=== PATIENT | male | born 1990 | race Caucasian/White ===

== ENCOUNTER 2017-08-22 02:26 | Emergency (ER) | payer SELFPAY ==
[~2017-08-22] VITALS: Ht 182.9 cm; Wt 81.6 kg
[2017-08-22 02:35] VITALS: BP 113/60
[2017-08-22] MEDS ORDERED: IBUPROFEN 400 MG TABLET PO ONE (04:00)
[2017-08-22] MEDS ORDERED: CEPHALEXIN MONOHYDRATE 500 MG CAPSULE PO ONE (04:00)
== END 2017-08-22 03:49 | disposition home or self-care (01) ==
LOC: ER 02:28
DX: L03.032 Cellulitis of left toe (principal)
CPT/HCPCS: A4606; Z7610

== ENCOUNTER → 2021-09-27 | Emergency (ER) | payer BC ==
[~2021-09-27] VITALS: Ht 180.3 cm; Wt 102.1 kg
[~2021-09-27] MED LIST: LIDOCAINE /MPF 1% VIAL 5 ML VIAL ONE; LIDOCAINE 1%-EPI 1:100,000 20 ML VIAL ONE; LIDOCAINE 1%-EPI 1:100,000 20 ML VIAL TP ONE; LIDOCAINE HCL/PF 1% 30 ML VIAL TP ONE; TDAP [DIPH/PERTUSSIS/TET] 0.5 ML VIAL IM ONE
[2021-09-27 09:01] VITALS: BP 126/80
--- NOTE | 2021-09-27 09:07 | NUR ---
DR CAGE AT BEDSIDE
--- NOTE | 2021-09-27 09:20 | NUR ---
TDAP GIVEN RIGHT DELTOID. LOT#[id number], EXP 07/12/2023
--- NOTE | 2021-09-27 09:34 | NUR ---
ORDER FOR XYLOCAINE W/ EPI NOTED FROM DR. CAGE. ORDER READ AND VERIFIED W/ .
--- NOTE | 2021-09-27 09:58 | NUR ---
Patient discharged to home in stable condition. Ambulatory w/ steady gait. Written and verbal after care instructions given for lac repair after care. Right fifth digit w/ dressing clean/dry/intact. Patient verbalizes understanding of instruction.
== END | disposition home or self-care (01) ==
LOC: ER 08:53
DX: S61.216A Laceration without foreign body of right little finger without damage to nail, initial encounter (principal); F31.9 Bipolar disorder, unspecified; W26.0XXA Contact with knife, initial encounter; Y93.89 Activity, other specified; Y92.89 Other specified places as the place of occurrence of the external cause; Y99.8 Other external cause status
CPT/HCPCS: 12002; 90471; 90715; 99283; A6403; J3490 ×3